=== PATIENT | female | born 1990 | race Hispanic/Latino ===

== ENCOUNTER 2017-07-10 05:55 | Day surgery (SDC) | payer OTHER ==
[2017-06-29 09:13] VITALS: BMI 21.6
[2017-07-10] MEDS ORDERED: ceFAZolin IV 1 gm in Dextrose 2 GM/100 ML BAG IVPB ONE (06:52)
[2017-07-10] MEDS ORDERED: EPINEPHrine 1:1000 Nasal Sol(30mL) ONE (06:52)
[2017-07-10] MEDS ORDERED: Propofol 10 mg/ml Inj (20 ML) ONE ×2 (07:10→11:19)
[2017-07-10] MEDS ORDERED: Midazolam 2 MG/2 ML VIAL ONE (07:10)
[2017-07-10] MEDS ORDERED: White Petrolatum/Mineral Oil Ophth Oint(3.5 gm) ONE (08:08)
[2017-07-10] MEDS ORDERED: Rocuronium 10 mg/ml (5 ml) ONE ×2 (08:08→08:30)
[2017-07-10] MEDS ORDERED: Neostigmine Methylsulfate 3mg/3ml Syringe IV ONE (10:58)
[2017-07-10] MEDS ORDERED: Morphine 4 MG/ML VIAL ONE (11:16)
[2017-07-10] MEDS: HYDROmorphone 0.5 mg/0.5 ml ISec IVP PRN ×3 (11:43→12:10)
[2017-07-10] MEDS ORDERED: HYDROmorphone 0.5 mg/0.5 ml ISec ONE (11:44)
--- NOTE | 2017-07-10 12:13 | PCM.SURG1 ---
Surgeon's Initial Post Op Note - Surgeon's Notes Surgeon: Yue Fletcher MD Apprentice Architect: Jonathon Mendez PA-C Type of Anesthesia: General Endo, Block Regional, Local Pre-Operative Diagnosis: Left hip. #1 labral tear. #2 synovitis Operative Findings: Left hip. #1 labral tear. #2 synovitis. #3 small CAM lesion femoral head (causing impingement). #4 capsulitis Post-Operative Diagnosis: Left hip. #1 labral tear. #2 synovitis. #3 small CAM lesion femoral head (causing impingement). #4 capsulitis Operation Performed: Left hip Arthroscopic. #1 Labral Repair. #2 extensive synovectomy and debridement. #3 femoral osteoplasty. #4 PRP intra-articular injection Specimen/Specimens Removed: specimen= none. complications= none. implants= Arthrex 2.9mm biocomposite pushlock anchor x1 Estimated Blood Loss: EBL {In ML}: 3 Blood Products Given: N/A Drains Used: No Drains Date of Surgery/Procedure: 07/10/17 Time of Surgery/Procedure: 11:00
[2017-07-10] MEDS ORDERED: Lidocaine Hydrochloride 5 ML INJ ONE (13:24)
[2017-07-10] MEDS ORDERED: Bupivacaine 0.25% Inj(30mL) ONE (13:25)
--- NOTE | 2017-07-10 13:56 | PCM.ANESB3 ---
Femoral Nerve Block - Femoral Nerve Block Date of Procedure: 07/10/17 Anesthesiologist: carol Pre-Procedure Diagnosis: left hip arthroscopy Post-Procedure Diagnosis: same Procedure Performed: Femoral Nerve Block Left - Procedure Femoral Nerve Block: The procedure was explained to the patient that it is for the post-operative pain management. Consent was obtained after a thorough discussion with the patient regarding the benefits and possible complications of local anesthetic block of the femoral nerve at the inguinal crease area. The patient was brought to the operating room and standard monitors were applied. Time-out was held with the circulating nurse to confirm the correct surgery and the appropriate block. After applying oxygen by nasal cannula and administering IV Sedation, patient was placed in supine position with fully extended lower extremities and the _left groin exposed. The femoral artery was then carefully palpated. The ultrasound transducer was then applied to this area in the transverse plane and the femoral nerve was visualized lateral to the femoral artery and underneath the fascia iliaca. After thorough identification, the inguinal crease area was prepped with Betadine solution three times and 1 % Lidocaine was injected subcutaneously for topical anesthesia. At this point, a #22 gauge Stimuplex 2-inch needle was inserted immediately lateral to the femoral artery pulse at the inguinal crease and advanced perpendicularly. The needle was inserted to the ultrasound transducer in-plane towards the femoral nerve in a [id number] direction. Needle advancement was performed carefully under direct ultrasound visualization. Nerve stimulator was used and twitch of the quadriceps muscle was obtained at current of MA. After negative aspiration, __5___cc of _0.25____% __Bupivacaine was injected and this was followed with __15____ cc of ___0.25____ % ___ Bupivacaine . Under ultrasound guidance the local anesthetics were observed spreading below fascia iliaca and around the femoral nerve. The needle was removed intact and sterile dressing was applied. The patient had stable vital signs, was conscious and in no apparent distress. In addition to femoral nerve block, the needle was advanced laterally under US to spread local for iliofascial block. After negative aspiration, 10cc of 0.25 Bupivacaine was injected. The patient tolerated the femoral nerve and the iliofascial block well with stable vital signs and was prepared for subsequent surgery.
[2017-07-10 15:19] VITALS: BP 126/73; PULSE 89; RESP 20; TEMP 98.2; O2SAT 98
--- NOTE | 2017-07-10 23:51 | OP ---
PROCEDURE DATE: 07/10/2017 PREOPERATIVE DIAGNOSES: Left hip, 1. Labral tear. 2. Synovitis. 3. Capsulitis. POSTOPERATIVE DIAGNOSES: Left hip, 1. Detached labral tear with hypermobility. 2. Synovitis. 3. Capsulitis. 4. Femoral head small CAM lesion (causing femoral acetabular impingement and injuring labrum). 5. 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 PROCEDURE: Left hip arthroscopic, 1. Labral repair. 2. Extensive synovectomy and debridement. 3. Capsulectomy. 4. Microfracture acetabulum. 5. Femoral osteoplasty. 6. Platelet-rich plasma intra-articular injection. SURGEON: Yue Fletcher MD PHARMACEUTICAL PHYSICIAN: Jonathon Mendez PA-C. JUSTIFICATION FOR PHARMACEUTICAL PHYSICIAN: Jnoathon Mendez is a certified physician sugar laboratory assistant, who is a skilled rn surgical pcu who was an absolute necessity for successful completion of the procedure as he provided skilled surgical assistance with positioning of patient, positioning extremity, management of the surgical field, retraction of neurovascular structures, management of orthoscopic equipment, positioning of the hip distractor, securing the patient safely, passage of suture and preparation of labral repair, placement of anchor and actual fixation of the labral repair, extensive synovectomy and debridement, microfracture of acetabulum, femoral osteoplasty, wound closure, fitting and placement of hip abduction brace. Jonathon Mendez was present for the entire case and was an absolute necessity for successful completion of the procedure. ANESTHESIA: General endotracheal anesthesia with a postop regional nerve block placed by anesthesia staff in PACU. SPECIMENS: None. COMPLICATIONS: None. IMPLANTS: Arthrex 2.9 mm BioComposite PushLock anchor and labral tape. ESTIMATED BLOOD LOSS: 3 mL. DRAINS: None. DISPOSITION: The patient was extubated and transferred to PACU in stable condition and tolerated the procedure well. INDICATIONS FOR SURGERY: The patient is a 27-year-old female with no significant past medical history, who presented under my care for the first time in my office on 07/12/2015 with left hip pain that began in 02/2015. The patient is an active young female and is an avid runner and likes to workout. She reported consistent left hip pain localized to the groin and the greater trochanter as well as the subgluteal area with increased activity and sometimes at rest. She has became very frustrated by these recurrent symptoms and has been difficult for her to perform the activity level that she desires. Her all encompassing diagnoses has been difficult to obtain, and we underwent a left hip intraarticular fluoroscopic guided cortisone mixture injection on 03/11/2017 with near complete resolution of her groin pain. This was only temporary and lasted about 4 weeks and the pain did return. Her initial followup in the office and evaluation in PACU revealed that she had complete resolution of her groin pain after the intraarticular cortisone mixture injection on 03/11/2017. Slowly the pain began to return back to its baseline level of a constant 7/10 localized to the groin and worse with increased activity. Pain was worse with high flexion and internal rotation. Pain was accompanied by snapping and clicking also when high flexion and internal rotation. She had undergone an MR arthrogram of the left hip at [facility] on 11/20/2016 prior to the hip injection under my care. MR arthrogram, left hip done on 11/20/2016 at [facility] was read as tear of anterior, anterior superior and superior labrum. She had also undergone an MRI of her lumbar spine as some of her symptoms seem to potentially be lumbar radiculopathy. The lumbar spine MRI also done at [facility] on 04/14/2017 was read as 1. No evidence of lumbar disc herniation. 2. Mild bilateral facet hypertrophy at L5-S1. 3. No evidence of spinal stenosis. With her lumbar spine with minimal findings and the subjective and objective benefits of the intraarticular hip injection done previously under my care, the patient was indicated for hip arthroscopic surgery to restore her function and decrease her pain. She was indicated for left hip arthroscopic labral repair versus debridement, extensive synovectomy, and capsulectomy, and all related indicated arthroscopic procedures including chondroplasty and microfracture as well as femoral osteoplasty and PRP injection as indicated. The risks, benefits and alternatives of the procedure were discussed at length with the patient with the risks included, but not limited to infection, neurovascular damage, needed for further surgery, failure of repair, failure of implants, stiffness, development of chronic pain and disability, development of blood clots including DVT and PE, need for further surgery, anesthesia reactions including . After answering all of her questions, stated that she understood the risks and wish to proceed with surgery. She watched surgical animation videos and diagnoses, animation videos at length, and stated that she had good understanding of the procedure as well as her diagnoses. We also reviewed at length her postop rehab protocol including the need for use of the hip brace, and she stated that she understood the need for compliance with the rehab protocol in order to maximize the chances of having successful outcome after surgery. She reviewed and read our hip arthroscopy handout and pamphlet, and I answered all of her questions. Arrangements were made for her to obtain and get fitted for a hip abduction brace which was carried out by a local customer marketing intern. Her constellation of symptoms included posterior buttocks pain, greater trochanteric bursa pain and groin pain. She understood that the nature of the surgery with addressed groin pain in particular and isolated. She understood that the greater trochanteric pain and the gluteal pain may improve by treating the intraarticular structures but there is no guarantee. With her constellation of symptoms, the only positive finding was the MR arthrogram labral tear and the positive outcome to the intra-articular hip injection under my care, and therefore, she was indicated for the surgery to help decrease her pain and restore her function. She was referred to her primary care physician for preadmission testing and the procedure was scheduled at [facility] on 07/10/2017. PROCEDURE IN DETAIL: The patient was identified in the preoperative holding area and the left hip was marked for surgery. Once again as described above, the risks, benefits, and alternatives of the procedure were discussed at length with the patient and informed consent was obtained. After a brief discussion with anesthesia staff, perioperative IV antibiotics in the form of 2 gm Ancef were administered, and the patient was taken to the operating room, placed on her stretcher. She was then transferred to the operating room table with all bony prominences and superficial neurovascular structures well-padded. The hip distractor was in position but not engaged or secured to the patient until she was placed under general anesthesia. An initial time out was done with the surgeon, anesthesia staff, OR staff, all in agreement with the patient, procedure being done and extremity being operated on. She was placed under general anesthesia without any difficulty or complication. Examination under anesthesia was carried out. Left hip with no swelling, no warmth, no erythema, skin intact, no evidence of instability, full range of motion compared to contralateral hip. All superficial neurovascular structures and bony prominences were well-padded. She was then brought down into the well-padded peroneal post. The nonoperative right lower extremity was secured to the hip distractor extremity positioner as a counter traction applicator and well-padded with all bony prominences and superficial neurovascular structures well-padded. The left lower extremity being the operative site was also secured to the hip distractor. Fluoroscopic imaging was then brought in to visualize the hip joints. A final time out was done with surgeon, anesthesia staff, OR staff, and all are in agreement with the patient, procedure being done and extremity being operated on. Traction was applied and the hip joint was opened up to an acceptable level and imaging was taken to confirm. The left hip was then prepped and draped in a standard sterile fashion. Bony landmarks were marked, namely the ASIS and the tip of the greater trochanter and an intersecting line between both the structures was drawn out. Care was taken to stay in the upper outer quadrant to avoid injury to the neurovascular structures of the leg. Spinal needle was advanced just anterior and proximal to the tip of the greater trochanter until there was an intraarticular position confirmed on fluoroscopic imaging. Dilators sequentially were used and the arthroscopic blunt trocar and cannula were inserted into the hip joint with fluoroscopic imaging confirmation. Arthroscopic camera was inserted and with the use of spinal needle localization, the anterior portal was created with stab incision through skin and sequential dilating after localization of the spinal needle and placement of the trocar. Once both the anterior and anterior lateral portals were established, the arthroscopic fluid was used to insufflate the hip joint and the hip joint was copiously irrigated for better visualization. Arthroscopic probe was then used and diagnostic arthroscopy was carried out. Attention was first turned towards the central compartment and the ligamentum, was found to have a partial tear that appeared to be chronic. Attention was then turned towards the acetabulum where at the 12 o'clock position directly superior, there was a small area of chondral injury corresponding with the future area of femoral CAM lesion that would be discovered later. This was a small 3 mm x 3 mm full thickness cartilage injury with expose of chondral bone after the unstable cartilage flaps were removed. The rest of the acetabulum exhibited intact cartilage. The femoral head exhibited intact cartilage with some minor signs of grade 1 to 2 chondromalacia at the weightbearing aspect with no full thickness cartilage defect or unstable cartilage flap seen. Attention then turned towards the labrum and the arthroscopic probe was then used to carefully evaluate the labrum. At the 1 to 2 o'clock position of the labrum, there was a complete detachment of the labrum with a 1.5 cm detached tear that was unstable. The rest of the labrum exhibited complex intrasubstance tearing but no significant detachment. The labrum overall did exhibit laxity and appeared to be swooping into the joint itself, most likely causing impingement and causing further pain and potentially propagating the labral tear to more severity. Attention then turned towards the capsule and the entire capsule exhibited significant thickness and hypertrophy with significant synovitis throughout the entire joint. With the use of the Pivot Samurai blade, a capsulotomy was carried out connecting the anterior to the anterolateral portal. With the use of arthroscopic shaver and radiofrequency ablation, an extensive synovectomy was carried out while maintaining good hemostasis, removing all the hypertrophic synovitis tissue that was causing impingement and pain. With the use of arthroscopic shaver and radiofrequency ablation, a capsulotomy was also completed and carried out. At that point in time, the probe was used to carefully evaluate the labral tear with the only unstable detached lesion being this 1 to 2 o'clock lesion of the labrum. An elevator was used to determine the width and measure, indeed it was 1 to 1.5 cm span of detached labrum. The Pivot suture passer was used to pass the labral tape from Arthrex around, and with the drill, a 2.9 mm Knotless PushLock BioComposite anchor from [employer] was placed with the suture around the labrum performing a labral repair with no intra-articular extension of the drill and care taken to ensure there was proper placement of the anchor. The anchor was impacted into position after we drilled its preliminary path and good fixation was achieved with the labral repair successfully carried out. The one labral tape at the 1 to 2 o'clock position provided enough stability and drill the draping of the labrum back into an anatomic position that appear to treat the impingement, and I did not see a need for placement of further anchors or suture. At that point in time, the extensive synovectomy and capsulotomy were carried out and the area of full thickness cartilage injury at the acetabulum underwent a chondroplasty, removing the unstable cartilage fragments. With the use of the microfracture, all 2 microfracture holes were placed with good bloody return for cartilage healing. Once this was placed to satisfaction and all the central compartment work was completed, the leg was removed from traction with a total traction time of 2 hours. At that point in time, we paid attention to the peripheral compartment. With the help of fluoroscopic imaging, the hip was brought into flexion and internal rotation under direct arthroscopic visualization, a small CAM lesion was identified and this also correlated with the exact area of labral detachment and injury as well as the secondary area of cartilage injury at the acetabulum. Being that this was a small CAM but apparently causing significant symptoms, decision was made to perform a femoral osteoplasty. With the use of the diana, the small CAM lesion was smoothed out until it was leveled with the rest of the femoral head and no longer causing impingement. Good hemostasis was achieved and with the use of arthroscopic shaver and radiofrequency ablation, the capsulectomy and synovectomy were also completed while maintaining good hemostasis with satisfaction. Once this was all done with the help of anesthesia staff, 7 mL of PRP were obtained from a peripheral stick and spun down and and injected intra-articularly after all arthroscopic debris and arthroscopic fluid were removed from the joint. Both arthroscopic portals were reapproximated with 2-0 Vicryl suture for a deep tissue followed by 3-0 Monocryl suture for skin. Sterile dressings were applied and then she was placed and fitted in the hip abduction brace provided by the customer marketing intern prior to surgery that she brought with her. The patient was then transferred to her stretcher where she was extubated from general anesthesia without any complications and transferred to PACU in stable condition and tolerated the procedure well. DISPOSITION: The patient will be strict nonweightbearing to the left lower extremity and she is instructed to keep the brace and the dressings on clean, dry and intact at all times. She will get a prescription for Percocet for pain control. She will get a prescription for Lovenox for DVT prophylaxis. She will follow up in my office next week and already has a postoperative appointment setup. Yue Fletcher MD [facility] # [phone]
--- NOTE | 2017-07-13 15:56 | RAD ---
PROCEDURE: Intraoperative Fluoroscopy. HISTORY: Left hip LABRAL TEAR FINDINGS: Fluoroscopic assistance was provided for left hip labral tear repair as well as right hip manipulation. Please refer to the operative report from ABHI Austin DR, MD.
== END 2017-07-10 16:54 | disposition home or self-care (01) ==
LOC: C.SDS 05:55
PROVIDERS: ATTEND Student in an Organized Health Care Education/Training Program
DX: M65.9 Synovitis and tenosynovitis, unspecified (principal); M24.152 Other articular cartilage disorders, left hip; M67.852 Other specified disorders of synovium, left hip; M77.9 Enthesopathy, unspecified
CPT/HCPCS: 27036; 29863; C1713; J0690; J1100; J1170; J2001; J2250; J2270; J2405; J2704; J2710; J3010